=== PATIENT | male | born 1965 | race Caucasian/White ===

== ENCOUNTER 2019-05-11 00:37 | Inpatient (IN) ==
[2019-05-11] MEDS ORDERED: PULMICORT INH ONE (02:23)
[2019-05-11] MEDS ORDERED: SOLU-MEDROL IV ONE (02:23)
[2019-05-11] MEDS ORDERED: DUONEB (A & A) INH ONE (02:23)
--- NOTE | 2019-05-11 02:26 | PROVIDER DOCUMENTATION ---
HPI-General Adult - General Chief Complaint: General Adult Stated Complaint: CHEMICAL REACTION Time Seen by Provider: 05/11/19 03:00 Source: patient Allergies/Adverse Reactions: Patient Allergies Allergy/AdvReac Type Severity Reaction Status Date / Time Penicillins Allergy ANAPHYLAXIS Verified 03/14/18 00:54 Home Medications: Home Medication List Medication Instructions Recorded Confirmed Last Taken Type Insulin Glargine [Lantus] 50 units SUBQ DAILY 01/21/15 03/14/18 04/04/17 11:00 History Methocarbamol [Robaxin-750] 750 mg PO BID #60 tablet 03/14/18 Unknown Rx Naproxen 500 mg PO BID PRN PRN #60 tablet 03/14/18 Unknown Rx - History of Present Illness -Gen Adult Nature of Presenting Problems: Presents to the with complaints of chemical inhalation. He states that he mixed draino and borax together and the fumes came up in his face and he inhaled them. He states since then he has been nauseous and has been having some SOB. This happened around 6pm and he states that it was getting worse so his wofe made him come in. Review of Systems - Adult - REVIEW OF SYSTEMS - ADULT Constitutional: reports: no symptoms reported Eyes: reports: no symptoms reported. denies: decreased vision, blurred vision, double vision Ears, Nose, Mouth & Throat: reports: no symptoms reported Cardiovascular: denies: chest pain Respiratory: reports: see HPI, shortness of breath, wheezing Gastrointestinal: reports: see HPI, nausea. denies: vomiting Genitourinary: reports: no symptoms reported Musculoskeletal: reports: no symptoms reported Integumentary: reports: no symptoms reported Neurological: reports: no symptoms reported. denies: dizziness/vertigo Psychiatric: reports: no symptoms reported Endocrine: reports: no symptoms reported Hematologic/Lymphatic: reports: no symptoms reported Allergic/Immunologic: reports: no symptoms reported All Other Systems: Reviewed and Negative Past History - Adult - PAST MEDICAL HISTORY-ADULT Review of Records: reports: Old Records Reviewed, Nursing Assessment Review, Medications Reviewed Major Childhood Illnesses: reports: denies history Cardiovascular: reports: denies history Respiratory: reports: denies history Gastrointestinal: reports: denies history Obstetrical/Gynecological: reports: denies history Genitourinary: reports: denies history Musculoskeletal: reports: denies history Neurological: reports: denies history Endocrine/Immune: reports: denies history Other Conditions: reports: denies history - IMMUNIZATION STATUS Childhood Immunizations: See Nurse Assessment Flu Vaccine: See Nurse Assessment - FAMILY HISTORY Family History: reviewed, not pertinent Physical Exam-General - PHYSICAL EXAM-ADULT Initial Vital Signs Reviewed: Yes - CONSTITUTIONAL General Appearance: alert, mild distress (mildly tachypneic on venti mask) - EYES Eyes: PERRL/EOMI - HEAD, EARS, NOSE, MOUTH & THROAT HENMT: normocephalic/atraumatic, moist mucous membranes - NECK Neck: non-tender, full range of motion, supple - RESPIRATORY Respiratory: chest non-tender, respiratory distress (mild), accessory muscle use (mild), wheezing (moderate diffusely) - CARDIOVASCULAR Cardiovascular: normal peripheral pulses, regular rate, rhythm, no edema, no murmur - GASTROINTESTINAL (ABDOMEN) Abdominal Exam: normal bowel sounds, non tender, soft - MUSCULOSKELETAL Back Exam: normal inspection Extremity: normal gait, normal inspection - SKIN Integumentary: normal color, warm/dry - NEUROLOGIC Neurologic: grossly normal - PSYCHIATRIC Psych/Mental Status: normal mood/affect, oriented x 3 Progress - PLAN OF CARE/RESULTS Progress/Plan/Lab Results: Vital Signs - 8 hr 05/11/19 00:39 Temperature 97.5 F L Pulse Rate 59 L Respiratory Rate 18 Blood Pressure 137/100 O2 Sat by Pulse Oximetry 97 Nursing staff contacted poison control who advised to treat like asthma attack and monitor for 4-6 hours. Patient continued to be monitored but became more tired from work of breathing and airway became more stridorous. Decision to intubate with patient's permission was completed. Patient intubated and now on venitlator. Charisse garciaon control back who stated that he might benefit from EGD as well. Spoke to Dr Dean who was down examining other patients and he states that he might benefit from GI completing the procedure given taht they can do dual scope. We will wait for hospitalist to make the decision as to who they would like complete the scope. Spoke to Hospitalist who accepted patient for admission. Further orders to be placed by hospitalist team. Result Diagrams: 05/11/19 02:51 05/11/19 02:51 - XRAY 1 XRAY Study: Chest (interstitial edema) Procedures - INTUBATION Time of Intubation: 04:31 Mallampati Class: 2 Intubation Method: orotracheal Equipment: ETT Tube Size (cm): 8.0 Pretreated with 100% Oxygen?: Yes Breath Sounds after Intubation: equal ETT Primary Tube Confirmation: Capnometry CO2 Change, Direct Visualization, Chest Rise and Fall, Tube placement verified on XRAY Intubation Complications: no complications Departure - Departure Date of Disposition Decision: 05/11/19 Time of Disposition Decision: 06:40 DIAGNOSIS: Inhalation injury due to chemical, Respiratory distress, Stridulous breathing Disposition: ADMITTED INPATIENT 09 Certified Medical Emergency: Emergent Condition: Stable Referrals and Follow-Ups: Tana Courtney CRNP [Primary Care Provider] - - Critical Care Note This patient required my direct & personal management of CC.: Yes Total Time (mins): 110 Critical Care Statement: This patient required my direct personal management to treat or rule out processes, the absence of which, could potentiallly result in sudden, clinically significant life or limb threatening deterioration. Attestation - Physician/ GRACIELA Attestation Patient care was provided by Advanced Practice Provider:: No The physician spent face to face time with patient:: Yes Advanced Practice Provider documentation review:: Supervising physician onsite and consulted in the evaluation and care of this patient. The physician did have a face to face encounter with the patient.
[2019-05-11 02:58] LABS: ALLEN TEST YES; BE 2.4 mmoll (-3.0-3.0); BLOOD TYPE ARTERIAL; HCO3-(ACT) 26.8 mmoll (20.0-26.0); METHB 0.9 % (0.0-1.5); O2(CT) 21.6 mL/dL (15.0-23.0); O2HB 97.2 % (95.0-99.0); PCO2(98.6) 45 mmHg (35-45); PO2(98.6) 214 mmHg (60-100); SAMPLE BLOOD; SAO2 98.5 % (95.0-100.0); THB 15.5 g/dL (11.5-17.4)
[2019-05-11 02:59] LABS: MODALITY VENTIMASK
[2019-05-11 03:02] LABS: BASO# 0.04 X1000 (0.0-0.2); BASO% 0.6 % (0.0-0.8); EOS# 0.25 X1000 (0.0-0.7); EOS% 3.7 % (0.0-10.0); HEMATOCRIT 46.8 % (42.0-52.0); HEMOGLOBIN 15.8 g/dL (14.0-18.0); LYMPH# 2.04 X1000 (1.2-3.4); MCHC 33.8 g/dL (33-37); MCV 85.9 FL (81-99); MONO# 0.48 X1000 (0.11-0.59); MONO% 7.1 % (1.7-9.3); NEUT# 3.98 X1000 (1.4-6.5); NEUT% 58.6 % (42.2-75.2); PLT 274 X1000 (130-400); RBC 5.45 XMIL (4.7-6.1); RDW 13.2 % (11.5-14.5); WBC 6.79 X1000 (4.8-10.8)
[2019-05-11 03:31] LABS: AGAP 10; ALB/GLOB RATIO 1.7; ALBUMIN 4.8 g/dL (3.5-5.0); ALKALINE PHOSPHATASE 83 U/L (32-122); BUN 13 mg/dL (8-22); CALCIUM 9.7 mg/dL (8.8-10.2); CHLORIDE 101 mmol/L (98-107); COSMO 286; CREATININE 0.7 mg/dL (0.7-1.2); ESTIMATED GFR > 60; GLUCOSE 148 mg/dL (70-104); GOT 12 U/L (10-34); GPT 12 U/L (10-44); SODIUM 142 mmol/L (136-145); TCO2 31 mmol/L (25-35); TOTAL BILIRUBIN 0.53 mg/dL (0.20-1.00); TOTAL PROTEIN 7.6 g/dL (6.3-8.3)
[2019-05-11] MEDS ORDERED: VERSED ONE (04:23)
[2019-05-11] MEDS ORDERED: NORCURON ONE (04:23)
[2019-05-11] MEDS ORDERED: AMIDATE ONE (04:23)
[2019-05-11] MEDS ORDERED: QUELICIN ONE (04:24)
[2019-05-11] MEDS ORDERED: DIPRIVAN 1% 1,000 MG/100 ML BOTTLE ONE ×2 (04:44→05:23)
[2019-05-11] MEDS ORDERED: ZOFRAN ONE (04:54)
[2019-05-11] MEDS ORDERED: QUELICIN IV ONE (05:14)
[2019-05-11] MEDS ORDERED: AMIDATE IV ONE (05:16)
[2019-05-11] MEDS ORDERED: VERSED IV ONE ×2 (05:17→06:27)
[2019-05-11] MEDS ORDERED: ZOFRAN IV ONE (05:18)
[2019-05-11] MEDS ORDERED: NS 1,000 ML ONE (05:23)
[2019-05-11] MEDS ORDERED: STERILE WATER INJ. ONE (05:58)
[2019-05-11] MEDS ORDERED: NORCURON IV ONE (06:12)
--- NOTE | 2019-05-11 06:40 | Diag Imaging Result Doc PS360 ---
CHEST-2 VIEWS - 05/11/2019 INDICATION: inhaled boric acid and drano COMPARISON: 03/06/2018 FINDINGS: The lungs are normally expanded and clear. Heart size and mediastinal contours are normal. No pneumothorax or pleural effusion. IMPRESSION: Negative exam. Electronically signed by Librado Fisher 05/11/2019 6:38 AM
--- NOTE | 2019-05-11 06:41 | Diag Imaging Result Doc PS360 ---
CHEST-PORTABLE - 05/11/2019 4:58 AM INDICATION: ET Tube Placement COMPARISON: 2:35 AM FINDINGS: There is a new endotracheal tube in good position at T5. There is a nasogastric tube in good position in the stomach. Lung volumes are much lower. There is some patchy atelectasis in both lung bases. Heart size is normal. IMPRESSION: No complication from support tube placement. Lower lung volumes with bibasilar patchy atelectasis. Electronically signed by Librado Fisher 05/11/2019 6:39 AM
[2019-05-11] MEDS ORDERED: ATIVAN IV ONE (07:20)
[2019-05-11] MEDS ORDERED: ATIVAN ONE ×2 (07:25→08:46)
[2019-05-11] MEDS ORDERED: ZOFRAN IV PRN (08:44)
[2019-05-11] MEDS ORDERED: NS 1,000 ML IV ONE (08:44)
[2019-05-11] MEDS ORDERED: ATIVAN IV PRN (08:44)
[2019-05-11] MEDS ORDERED: DUONEB (A & A) INH PRN (08:44)
[2019-05-11 09:01] LABS: URINE SOURCE CATH
[2019-05-11 09:07] LABS: BILIRUBIN URINE NEGATIVE (NEGATIVE); BLOOD URINE NEGATIVE (NEGATIVE); COLOR YELLOW; GLUCOSE URINE >1000 mg/dL (NEGATIVE); KETONE URINE 40 mg/dL (NEGATIVE); LEUKOCYTES URINE NEGATIVE (NEGATIVE); NITRITE URINE NEGATIVE (NEGATIVE); PROTEIN URINE 30 mg/dL (NEGATIVE); SP GRAVITY URINE 1.028; TURBIDITY URINE CLEAR (CLEAR); UROBILINOGEN URINE NORMAL (NORMAL)
[2019-05-11 09:08] LABS: UR EPITHELIAL CELLS <10 /HPF (<10); URINE BACTERIA NEGATIVE /HPF; URINE RBC <10 /HPF (<10); URINE WBC <10 /HPF (<10)
[2019-05-11] MEDS: DIPRIVAN 1% 1,000 MG/100 ML BOTTLE IV SCH ×6 (09:11→21:03)
[2019-05-11] MEDS ORDERED: ZANTAC IV SCH (09:30)
[2019-05-11 09:56] LABS: ALLEN TEST YES; BE -0.2 mmoll (-3.0-3.0); BLOOD TYPE ARTERIAL; HCO3-(ACT) 24.8 mmoll (20.0-26.0); METHB 0.8 % (0.0-1.5); O2(CT) 19.8 mL/dL (15.0-23.0); O2HB 96.9 % (95.0-99.0); PCO2(98.6) 41 mmHg (35-45); PO2(98.6) 116 mmHg (60-100); SAMPLE BLOOD; SAO2 98.5 % (95.0-100.0); SRATE 14 BPM; THB 14.4 g/dL (11.5-17.4); TVOL 600 mL; pH(98.6) 7.39 (7.35-7.45)
[2019-05-11 09:57] LABS: MODALITY VENTILATOR
--- NOTE | 2019-05-11 10:23 | HISTORY AND PHYSICAL ---
PRIMARY CARE PROVIDER: JENS Kendrick. CHIEF COMPLAINT: Shortness of breath, nausea, and vomiting per . HISTORY OF PRESENT ILLNESS: Mr. Rangel is a 53-year-old male who carries a past medical history of diabetes mellitus type 2. Per the patient's , last night around 6 p.m. he was trying to unclog a tub. He first poured Drano down there, waited about an hour and poured boric acid on top of it. It made fumes. The patient inhaled them; shortly after he started experiencing some nausea and vomiting that progressed to some shortness of breath. His urged him to come to the ED where they watched him closely. They started to note some swelling to his tongue and throat. He started having some stridor. He was intubated, and will be admitted for toxic inhalation, and he will be watched closely in the ICU with a consult with Pulmonary and GI. REVIEW OF SYSTEMS: Twelve-point review of systems hard to obtain secondary to the patient being sedated with propofol and Ativan. PAST MEDICAL HISTORY: Diabetes mellitus type 2. PAST SURGICAL HISTORY: 1. Bilateral knee surgery. 2. Hernia repair. 3. Appendectomy. SOCIAL HISTORY: The patient is . He lives with his . Denies any alcohol, tobacco or illicit drug use. FAMILY HISTORY: Unknown. HOME MEDICATIONS: Insulin. ALLERGIES: Penicillin. PHYSICAL EXAMINATION: VITAL SIGNS: Temperature is 97.5 degrees, heart rate 83, respirations 18, blood pressure 134/78, O2 is 98% on mechanical ventilation. GENERAL: Mr. Rangel is a 53-year-old male, who was intubated, sedated on the ventilator. Bilateral wrist restraints in place. Lying on the stretcher in no acute distress. HEENT: Atraumatic, normocephalic. ANASTACIA. NECK: Supple. Trachea midline. Mucous membranes: I could not appreciate any chemical type russell. It was hard to assess secondary to the patient being intubated. There might have been some slight tongue swelling; again, hard to assess. CV: S1, S2 appreciated. No murmurs, gallops, rubs noted. RESPIRATORY: Lung sounds clear. No rales, rhonchi, or wheezes. GI: Abdomen soft, nontender, nondistended. Positive bowel sounds 4 quadrants. EXTREMITIES: Lower extremities were negative for edema. Bilateral pedal pulses were bounding. NEUROLOGIC: Patient is on the vent, sedated with propofol. He did become somewhat agitated prior to being transferred to the ICU, and restraints did have to be placed at that time. DIAGNOSTIC DATA: Initial chest x-ray: A negative exam. Followup chest x-ray after intubation showed no complication from supportive tube placement. Lower lung volumes with bibasilar patchy atelectasis. LABORATORY DATA: White count 6, hemoglobin and hematocrit 15 and 46, platelet count is 274. ABG: A pH 7.4, pCO2 45, PO2 214, bicarbonate 26, base excess 2.4, O2 saturation 98.5 on Ventimask. Sodium 142, potassium 4.0, BUN 13, creatinine 0.7, blood glucose was 148. Urinalysis was negative for nitrates, negative for bacteria. ASSESSMENT AND PLAN: 1. Toxic chemical inhalation. The patient has been mechanically intubated in the ED. We will consult Pulmonology as well as Gastroenterology. The ED did report the patient had tongue swelling, as well as some irritation to the throat, and was having some stridor. We will continue on bronchodilators. Dr. Thornton has added Solu-Medrol intravenous as well as Zantac intravenous. We will continue him on propofol drip, as well as Ativan as- needed for agitation. 2. Diabetes mellitus type 2. We will continue with pattern blood sugars and sliding scale insulin. 3. Further recommendation to follow physician evaluation, laboratory and diagnostic data. Dictated by JENS Cash for Navid Rocha MD cc: MD Tana Moreno CRNP James E. Boyle, MD Michael Kelso, MD MTDD
[2019-05-11] MEDS: ZANTAC 50 MG in NS 50 ML IV SCH ×2 (10:31→18:09)
[2019-05-11 10:34] LABS: UR AMPHETAMINES QUAL NONE DETECTED (NONE DETECT); UR BARBITUATES QUAL NONE DETECTED (NONE DETECT); UR BENZODIAZEPIN QUAL PRESUMPTIVE POSITIVE (NONE DETECT); UR CANNABINOIDS QUAL NONE DETECTED (NONE DETECT); UR COCAINE QUAL NONE DETECTED (NONE DETECT); UR METHADONE QUAL NONE DETECTED (NONE DETECT); UR OPIATES QUAL NONE DETECTED (NONE DETECT); UR OXYCODONE QUAL NONE DETECTED (NONE DETECT); UR PCP QUAL NONE DETECTED (NONE DETECT)
[2019-05-11] MEDS: LOVENOX SUBQ SCH (10:34)
[2019-05-11] MEDS: SOLU-MEDROL IV SCH ×2 (10:34→16:47)
[2019-05-11] MEDS: HUMALOG SUBQ SCH ×4 (10:42→20:44)
[2019-05-11] MEDS ORDERED: HUMALOG SUBQ SCH (11:00)
[2019-05-11] MEDS: DUONEB (A & A) INH SCH ×4 (11:26→22:53)
--- NOTE | 2019-05-11 16:50 | PULMONOLOGY CONSULTATION ---
DATE: 05/11/2019 REASON FOR CONSULTATION: Respiratory failure. HISTORY OF PRESENT ILLNESS: Mr. Rangel is a 53-year-old white male, never smoker, who was in his usual state of good health until he mixed a combination of Drano and boric acid to unclog a sink. The patient's reports that with the mixture, the drain began to bubble, and he was exposed to the fumes. He subsequently became nauseous and vomited. The patient presented to the emergency room and had stridorous respirations with increased work of breathing. The patient was intubated approximately 7-1/2 hours after exposure. The patient is currently on mechanical ventilation and appears comfortable on propofol. He is receiving IV fluids. PAST MEDICAL HISTORY: 1. History of morbid obesity status post gastric sleeve placement. He has lost approximately 100 pounds since his sleeve placement. 2. Status post appendectomy. 3. Status post hernia repair. 4. Status post 2 knee surgeries. 5. Diabetes mellitus. ALLERGIES: Allergy to penicillin, which causes dyspnea and throat swelling. FAMILY HISTORY: Positive for diabetes mellitus, coronary artery disease, strokes, and seizures. SOCIAL HISTORY: The patient is a nonsmoker. Occasional social alcohol use. 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 REVIEW OF SYSTEMS: Cannot be obtained. PHYSICAL EXAMINATION: Physical exam reveals a healthy-appearing white male, who is intubated and sedated on mechanical ventilation.HEENT: Pupils are equal and reactive. He has no evidence of erythema or chemical conjunctivitis. Nasal passages appear clear without erythema, bleeding, drainage, or exudates. Oropharynx appears clear with limited evaluation with endotracheal tube in place. Neck is supple. Chest reveals good air entry bilaterally without wheezing or rhonchi. Cardiac: S1, S2. Regular rate. Abdomen is soft. Extremities are without edema. DIAGNOSTIC STUDIES: Chest x-ray reveals good endotracheal tube position with patchy atelectasis in the lung bases. Arterial blood gas reveals a pH of 7.39, pCO2 of 41, PO2 of 116 on mechanical ventilation. Sodium 142, potassium 4.0, chloride 101, bicarbonate 31, BUN 13, creatinine 0.7. White blood count 6.79, hemoglobin 15.8, platelet count 274,000. IMPRESSION: A 53-year-old with toxic chemical inhalation with acute hypoxemic respiratory failure requiring intubation and mechanical ventilation. Typically mixing an acid and a base will produce heat, but the fumes can be acidic or basic, depending on the stoichiometry of the mixture, and chemical airways burn can occur. RECOMMENDATIONS: 1. Initiate steroids, although this may or may not be of benefit. 2. Continue ventilatory care. 3. Tomorrow, his cuff will be deflated to see if he has good air flow around the cuff. 4. GI evaluation being considered as outlined by recommendations from Poison Control. 5. Routine bronchodilators. 6. Routine gastric acid suppression. 7. Sedation and DVT prophylaxis as necessary. cc: Josh Thornton MD
--- NOTE | 2019-05-11 17:29 | HISTORY AND PHYSICAL ---
ADDENDUM: The patient seen and examined by me [id number]. All of the laboratory, vital signs, and images were reviewed. It looks like this patient has a toxic chemical inhalation with acute hypoxemic respiratory failure requiring intubation and mechanical ventilation. As per the , he was using Drano and then boric acid on top of that and that made fumes. He was trying to unclog a tub. As per the , he started having some shortness of breath afterwards, that was yesterday around 6 p.m., and then he was progressively getting worse, to the point that he was not breathing normally so she decided to come to the emergency department and he was intubated. Laboratory does not look that bad. Urine toxicology showed benzodiazepine. Chemistry showed hyperglycemia. Pulmonary Department has been consulted. We will follow their recommendations. Physical exam showed some crepitus at the bases but good air entry. We will continue monitoring this patient in the ICU. He will receive some steroids, GI and DVT prophylaxis. cc: Navdi Rocha MD
[2019-05-12] MEDS: DIPRIVAN 1% 1,000 MG/100 ML BOTTLE IV SCH ×4 (00:03→07:41)
[2019-05-12] MEDS: HUMALOG SUBQ SCH ×6 (00:44→21:08)
[2019-05-12] MEDS: SOLU-MEDROL IV SCH ×3 (00:44→16:29)
[2019-05-12] MEDS: ZANTAC 50 MG in NS 50 ML IV SCH ×3 (02:06→17:59)
[2019-05-12] MEDS: DUONEB (A & A) INH SCH ×6 (03:02→23:10)
--- NOTE | 2019-05-12 06:34 | Diag Imaging Result Doc PS360 ---
CHEST-PORTABLE - 05/12/2019 INDICATION: dyspnea COMPARISON: 05/11/2019 FINDINGS: Support tubes are stable and in good position. Stable severely low lung volumes. Stable hazy atelectasis in both lung bases. No new infiltrates. Heart size remains top normal. IMPRESSION: No change from prior. Electronically signed by Librado Fisher 05/12/2019 6:31 AM
[2019-05-12 07:52] LABS: ALLEN TEST YES; BE -0.1 mmoll (-3.0-3.0); BLOOD TYPE ARTERIAL; HCO3-(ACT) 24.8 mmoll (20.0-26.0); METHB 0.8 % (0.0-1.5); O2(CT) 19.1 mL/dL (15.0-23.0); O2HB 97.2 % (95.0-99.0); PCO2(98.6) 36 mmHg (35-45); PO2(98.6) 147 mmHg (60-100); SAMPLE BLOOD; SAO2 98.5 % (95.0-100.0); SRATE 14 BPM; THB 13.8 g/dL (11.5-17.4); TVOL 600 mL; pH(98.6) 7.43 (7.35-7.45)
--- NOTE | 2019-05-12 07:56 | PROGRESS NOTE ---
DATE: 05/12/2019 SUBJECTIVE: Patient is still on mechanical ventilation and sedated. No acute events overnight. Vital signs are stable. We will continue with the same management for now. We will try to deflate the endotracheal cuff to see if there is good air flow around the cuff to see if we can extubate this patient anytime soon. OBJECTIVE: Vital Signs: Temperature 98.1 degrees, pulse 61, respiratory rate 14, blood pressure 97/60, oxygen saturation 99 on mechanical ventilation. HEENT: Head normocephalic. No trauma. PERRLA. Neck: Supple. No JVD. No masses. Central trachea. Chest: Clear to auscultation. Some scattered crepitus. Abdomen: Soft, nontender, nondistended. No hepatosplenomegaly. Extremities: No edema, no clubbing, no cyanosis. Neurologic: The patient is on mechanical ventilation and sedated. LABORATORY DATA: Pending lab work at this moment. ASSESSMENT AND PLAN: 1. Toxic chemical inhalation. Continue with mechanical ventilation. We will try to deflate the endotracheal cuff today to see if there is good air flow around the cuff. We will continue with mechanical ventilation in the meantime. We will monitor this patient closely. Pulmonary Department on board. 2. Type 2 diabetes. Continue pattern blood sugar and sliding scale insulin. Blood sugar seems to be stable. 3. Gastrointestinal prophylaxis with ranitidine. 4. Deep venous thrombosis prophylaxis with Lovenox. CRITICAL CARE TIME: 30 minutes. cc: Navid Rocha MD
[2019-05-12 08:14] LABS: MODALITY VENTILATOR
[2019-05-12] MEDS: LOVENOX SUBQ SCH (08:31)
[2019-05-12] MEDS: PRECEDEX 200 MICROGM in NS 48 ML IV SCH ×8 (09:42→23:45)
[2019-05-12 09:55] LABS: HEMATOCRIT 40.5 % (42.0-52.0); HEMOGLOBIN 13.9 g/dL (14.0-18.0); IMM GRAN# 0.02 X1000 (0.0-0.04); IMM GRAN% 0.2 % (0.0-0.5); LYMPH# 0.51 X1000 (1.2-3.4); LYMPH% 4.8 % (20.5-51.1); MCH 29.3 PG (27-31); MCHC 34.3 g/dL (33-37); MCV 85.3 FL (81-99); MONO# 0.51 X1000 (0.11-0.59); MONO% 4.8 % (1.7-9.3); MPV 10.8 FL (7.4-10.4); NEUT# 9.49 X1000 (1.4-6.5); NEUT% 90.2 % (42.2-75.2); PLT 261 X1000 (130-400); RBC 4.75 XMIL (4.7-6.1); RDW 13.5 % (11.5-14.5); WBC 10.53 X1000 (4.8-10.8)
[2019-05-12] MEDS: ATIVAN IV PRN ×2 (10:06→15:06)
[2019-05-12 10:09] LABS: HEMOGLOBIN A1C 7.7 % (4.8-6.0)
[2019-05-12 11:08] LABS: AGAP 15; BUN 13 mg/dL (8-22); CALCIUM 8.6 mg/dL (8.8-10.2); CHLORIDE 106 mmol/L (98-107); COSMO 287; CREATININE 0.6 mg/dL (0.7-1.2); GLUCOSE 192 mg/dL (70-104); SODIUM 141 mmol/L (136-145); TCO2 20 mmol/L (25-35)
[2019-05-12 11:09] LABS: ALB/GLOB RATIO 1.3; ALBUMIN 3.6 g/dL (3.5-5.0); ALKALINE PHOSPHATASE 63 U/L (32-122); GOT 10 U/L (10-34); GPT 6 U/L (10-44); TOTAL BILIRUBIN 0.21 mg/dL (0.20-1.00); TOTAL PROTEIN 6.3 g/dL (6.3-8.3)
--- NOTE | 2019-05-12 20:45 | PULMONOLOGY PROGRESS NOTE ---
DATE: 05/12/2019 SUBJECTIVE: The patient's propofol was held. The patient became very combative and despite holding his arms and allowing time to pass, he would not open his eyes and follow commands. His endotracheal tube cuff was deflated and he does have some air with exhalation, but it is difficult to tell if he has air with inhalation past the deflated cuff. OBJECTIVE: Vital Signs: Blood pressure 157/98, heart rate 67, respiratory rate 14, oxygen saturation 98%. HEENT: Pupils are equal and reactive. Oropharynx is clear. Neck: Supple. Chest: Coarse rhonchi bilaterally. Cardiac: S1, S2. Abdomen: Soft and without hepatosplenomegaly. Extremities: Without edema. LABORATORIES: Chest x-ray reveals shallow inspiration with hazy atelectasis in both lung bases. Arterial blood gas reveals pH 7.43, pCO2 of 36, pO2 of 147. Sodium 141, potassium 4.0, chloride 106, bicarbonate 20, anion gap 20, BUN 13, creatinine 0.6, glucose 192. White blood count 10.53, hemoglobin 13.9, platelet count 261,000. IMPRESSION: A 53-year-old with: 1. Acute hypoxemic respiratory failure. 2. Toxic chemical inhalation after mixing boric acid and Drano. 3. Altered mental status. RECOMMENDATION: 1. Will transition patient to Precedex due to the fact that propofol could not be held long enough to examine inspiratory and expiratory flow around a deflated cuff. 2. Ativan as needed for anxiety. 3. Continue steroids. 4. Continue gastric acid suppression. 5. Check a sputum for culture and sensitivity. 6. Anticipate extubation later this afternoon or tomorrow morning. Critical Care Time: 30+ minutes cc: Josh Thornton MD MTDD
[2019-05-13] MEDS: HUMALOG SUBQ SCH ×6 (01:16→20:34)
[2019-05-13] MEDS: SOLU-MEDROL IV SCH ×3 (01:16→16:49)
[2019-05-13] MEDS: PRECEDEX 200 MICROGM in NS 48 ML IV SCH ×2 (02:40→06:33)
[2019-05-13] MEDS: DUONEB (A & A) INH SCH ×6 (03:15→23:10)
[2019-05-13] MEDS: ZANTAC 50 MG in NS 50 ML IV SCH ×3 (03:28→19:05)
[2019-05-13 04:36] LABS: ALLEN TEST YES; BE 0.5 mmoll (-3.0-3.0); BLOOD TYPE ARTERIAL; HCO3-(ACT) 25.3 mmoll (20.0-26.0); O2(CT) 21.4 mL/dL (15.0-23.0); O2HB 95.9 % (95.0-99.0); PCO2(98.6) 41 mmHg (35-45); PO2(98.6) 98 mmHg (60-100); SAMPLE BLOOD; SAO2 97.7 % (95.0-100.0); SRATE 14 BPM; THB 15.8 g/dL (11.5-17.4); TVOL 600 mL
[2019-05-13 04:43] LABS: MODALITY VENTILATOR
[2019-05-13 05:05] LABS: BASO# 0.01 X1000 (0.0-0.2); BASO% 0.1 % (0.0-0.8); HEMATOCRIT 44.5 % (42.0-52.0); HEMOGLOBIN 15.2 g/dL (14.0-18.0); LYMPH# 0.57 X1000 (1.2-3.4); LYMPH% 4.8 % (20.5-51.1); MCH 29.3 PG (27-31); MCHC 34.2 g/dL (33-37); MCV 85.9 FL (81-99); MONO# 0.67 X1000 (0.11-0.59); MONO% 5.7 % (1.7-9.3); MPV 10.4 FL (7.4-10.4); NEUT% 89.4 % (42.2-75.2); PLT 242 X1000 (130-400); RBC 5.18 XMIL (4.7-6.1); RDW 13.3 % (11.5-14.5); WBC 11.85 X1000 (4.8-10.8)
[2019-05-13 05:11] LABS: AGAP 14; ALB/GLOB RATIO 1.3; ALBUMIN 3.7 g/dL (3.5-5.0); ALKALINE PHOSPHATASE 65 U/L (32-122); BUN 19 mg/dL (8-22); CALCIUM 9.1 mg/dL (8.8-10.2); CHLORIDE 105 mmol/L (98-107); COSMO 291; CREATININE 0.7 mg/dL (0.7-1.2); ESTIMATED GFR > 60; GLUCOSE 233 mg/dL (70-104); GOT 9 U/L (10-34); GPT 8 U/L (10-44); POTASSIUM 4.3 mmol/L (3.5-5.1); SODIUM 141 mmol/L (136-145); TCO2 22 mmol/L (25-35); TOTAL BILIRUBIN 0.56 mg/dL (0.20-1.00); TOTAL PROTEIN 6.5 g/dL (6.3-8.3)
--- NOTE | 2019-05-13 07:52 | Diag Imaging Result Doc PS360 ---
EXAM: CHEST-PORTABLE INDICATION: dyspnea TECHNIQUE: One view COMPARISON: 05/12/2019 FINDINGS: Support tubes and lines are in stable positions. Atelectasis and/or infiltrate at the right mid and lower lung zone appears to have slightly worsened. The milder atelectasis at the left lower lung zone is stable. No new consolidation is identified, otherwise. Cardiac silhouette is stable. IMPRESSION: Interval slight worsening of atelectasis and/or infiltrate on the right. Electronically signed by Carlos Sue 05/13/2019 7:49 AM
--- NOTE | 2019-05-13 08:04 | PROGRESS NOTE ---
DATE: 05/13/2019 SUBJECTIVE: This patient is still on mechanical ventilation and sedated. We will continue with the same management for now. Hopefully, we will extubate this patient today. Pulmonary Department on board. OBJECTIVE: Vital Signs: Temperature 97.4 degrees, pulse 58, respiratory rate 14, blood pressure 140/82, oxygen saturation 98 on mechanical ventilation. HEENT: Head normocephalic, no trauma. PERRLA. Neck: Supple. No JVD. No masses. Central trachea. Chest: Clear to auscultation. Some scattered crepitus at the bases. Abdomen: Soft, nontender, nondistended. No hepatosplenomegaly. Extremities: No edema, no clubbing, no cyanosis. Neurological examination: The patient is on mechanical ventilation and sedated. LABORATORY: WBC 11.8, hemoglobin 15.2, hematocrit 44.5, and platelets 242. Sodium 141, potassium 4.3, chloride 105, bicarbonate 22. BUN 19, creatinine 0.7 glucose 233, calcium 9.1. ASSESSMENT AND PLAN: 1. Toxic chemical inhalation. Continue with mechanical ventilation. We will try to extubate this patient today. Pulmonary Department on board. Continue with same management. 2. Type 2 diabetes. Continue with pattern blood sugar and sliding scale insulin. We will put this patient back on his Lantus once he is extubated and able to eat. 3. Gastrointestinal prophylaxis with ranitidine. 4. Deep vein thrombosis prophylaxis with Lovenox. 5. Hemoglobin A1c 7.7. CRITICAL CARE TIME: 35 minutes. cc: Navid Rocha MD
[2019-05-13] MEDS: LOVENOX SUBQ SCH (08:14)
--- NOTE | 2019-05-13 10:06 | PULMONOLOGY PROGRESS NOTE ---
DATE: 05/13/2019 SUBJECTIVE: The patient is awake. He will follow commands. OBJECTIVE: Vital Signs: The patient has been afebrile for the last 24 hours. Blood pressure 112/70, heart rate 62, respiratory rate 12 on the monitor, oxygen saturation 98%. HEENT pupils are equal and reactive. Oropharynx evaluation appears normal but evaluation is limited with endotracheal tube in place. Neck is supple. Chest reveals scattered rhonchi bilaterally. Cardiac exam: S1, S2. Abdomen is soft without hepatosplenomegaly. Extremities without edema. LABORATORIES: Chest x-ray reveals increased infiltrates on the right. Sputum culture is pending. White blood count 11.9, hemoglobin 15.2, platelet count 242,000. Sodium 141, potassium 4.3, chloride 105, bicarbonate 22, BUN 19, creatinine 0.7. Arterial blood gas reveals a pH of 7.40, pCO2 of 41, pO2 of 98. ADDITIONAL EVENTS: The patient has endotracheal tube cuff was deflated. He did have air around the cuff. He had copious amounts of secretions which were suctioned clear. He was doing well on a spontaneous breathing trial. The [place] scope was brought to the bedside by respiratory therapy. The patient was extubated by respiratory therapy. On re-evaluation, he has no increased work of breathing off mechanical ventilation. His voice is coarse. IMPRESSION: 1. 53-year-old with toxic chemical inhalation with upper airway injury. 2. Acute hypoxemic respiratory failure. 3. Right sided pneumonia. 4. Patient doing well following extubation. RECOMMENDATIONS: 1. Continue bronchodilators. 2. Continue steroids. 3. Low threshold for initiating antibiotics given mild elevation in white count and radiographic changes. 4. Continue ICU monitoring. TIME SPENT CRITICAL CARE: 30 plus minutes. cc: Josh Thornton MD
[2019-05-13] MEDS: MORPHINE IV PRN ×4 (13:01→23:12)
[2019-05-13] MEDS: CLINIMIX E 4.25%-5% SOLUTION 1,000 ML IV SCH (13:35)
[2019-05-13] MEDS ORDERED: CHLORASEPTIC SPRAY MT PRN (21:36)
[2019-05-14] MEDS ORDERED: FLEXERIL PO ONE (00:16)
[2019-05-14] MEDS: HUMALOG SUBQ SCH ×6 (02:23→20:34)
[2019-05-14] MEDS: SOLU-MEDROL IV SCH ×3 (02:25→18:19)
[2019-05-14] MEDS: CLINIMIX E 4.25%-5% SOLUTION 1,000 ML IV SCH (02:51)
[2019-05-14] MEDS: DUONEB (A & A) INH SCH ×6 (03:03→23:33)
[2019-05-14] MEDS: ZANTAC 50 MG in NS 50 ML IV SCH ×3 (03:32→18:19)
[2019-05-14 05:01] LABS: BASO# 0.01 X1000 (0.0-0.2); BASO% 0.1 % (0.0-0.8); EOS# 0.01 X1000 (0.0-0.7); EOS% 0.1 % (0.0-10.0); HEMATOCRIT 42.9 % (42.0-52.0); HEMOGLOBIN 14.4 g/dL (14.0-18.0); LYMPH# 0.89 X1000 (1.2-3.4); LYMPH% 8.6 % (20.5-51.1); MCH 29.2 PG (27-31); MCHC 33.6 g/dL (33-37); MONO# 0.83 X1000 (0.11-0.59); MPV 10.3 FL (7.4-10.4); NEUT# 8.63 X1000 (1.4-6.5); NEUT% 83.2 % (42.2-75.2); PLT 234 X1000 (130-400); RBC 4.93 XMIL (4.7-6.1); RDW 13.4 % (11.5-14.5); WBC 10.37 X1000 (4.8-10.8)
[2019-05-14 05:03] LABS: ALLEN TEST YES; BE 4.5 mmoll (-3.0-3.0); BLOOD TYPE ARTERIAL; HCO3-(ACT) 28.5 mmoll (20.0-26.0); PCO2(98.6) 46 mmHg (35-45); PO2(98.6) 129 mmHg (60-100); SAMPLE BLOOD; pH(98.6) 7.42 (7.35-7.45)
[2019-05-14 05:04] LABS: MODALITY COOL AEROSOL
[2019-05-14 05:18] LABS: AGAP 11; ALB/GLOB RATIO 1.2; ALBUMIN 3.4 g/dL (3.5-5.0); ALKALINE PHOSPHATASE 58 U/L (32-122); BUN 20 mg/dL (8-22); CALCIUM 9.6 mg/dL (8.8-10.2); CHLORIDE 104 mmol/L (98-107); COSMO 288; CREATININE 0.5 mg/dL (0.7-1.2); ESTIMATED GFR > 60; GLUCOSE 174 mg/dL (70-104); POTASSIUM 4.3 mmol/L (3.5-5.1); SODIUM 141 mmol/L (136-145); TCO2 26 mmol/L (25-35); TOTAL BILIRUBIN 0.39 mg/dL (0.20-1.00); TOTAL PROTEIN 6.2 g/dL (6.3-8.3)
[2019-05-14 05:19] LABS: GOT 12 U/L (10-34); GPT 8 U/L (10-44)
[2019-05-14] MEDS: MORPHINE IV PRN ×5 (05:29→20:35)
--- NOTE | 2019-05-14 07:08 | Diag Imaging Result Doc PS360 ---
EXAM: CHEST-PORTABLE 05/14/2019 HISTORY: dyspnea TECHNIQUE: AP portable at 0528 COMMENT: There are platelike atelectatic changes over the left base with volume loss. There is some improvement in the opacity over the right lower lobe compared to 05/13/2019. The endotracheal tube and NG tube have been removed. IMPRESSION: Improved pneumonia right lower lobe. Worsened left lower lobe atelectasis. Electronically signed by Austin Suarez 05/14/2019 7:05 AM
[2019-05-14] MEDS: FLEXERIL PO PRN (07:28)
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
[2019-05-14] MEDS: LOVENOX SUBQ SCH (08:58)
[2019-05-14] MEDS ORDERED: FLEXERIL PO SCH (09:00)
[2019-05-14] MEDS: LEVAQUIN 500 MG/D5W 500 MG/100 ML IVPB IV SCH (12:13)
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
[2019-05-15] MEDS: HUMALOG SUBQ SCH ×6 (02:06→22:33)
[2019-05-15] MEDS: ZANTAC 50 MG in NS 50 ML IV SCH ×2 (02:07→12:28)
[2019-05-15] MEDS: SOLU-MEDROL IV SCH ×2 (02:07→09:59)
[2019-05-15] MEDS: DUONEB (A & A) INH SCH ×6 (03:33→23:05)
[2019-05-15 06:23] LABS: BASO# 0.02 X1000 (0.0-0.2); BASO% 0.2 % (0.0-0.8); EOS# 0.04 X1000 (0.0-0.7); EOS% 0.5 % (0.0-10.0); HEMATOCRIT 43.4 % (42.0-52.0); HEMOGLOBIN 14.7 g/dL (14.0-18.0); LYMPH# 0.63 X1000 (1.2-3.4); LYMPH% 7.3 % (20.5-51.1); MCH 29.3 PG (27-31); MCHC 33.9 g/dL (33-37); MCV 86.6 FL (81-99); MONO# 0.43 X1000 (0.11-0.59); MPV 10.4 FL (7.4-10.4); NEUT# 7.52 X1000 (1.4-6.5); PLT 254 X1000 (130-400); RBC 5.01 XMIL (4.7-6.1); WBC 8.64 X1000 (4.8-10.8)
[2019-05-15 06:47] LABS: AGAP 10; CHLORIDE 103 mmol/L (98-107); GLUCOSE 199 mg/dL (70-104); POTASSIUM 4.7 mmol/L (3.5-5.1); SODIUM 141 mmol/L (136-145); TCO2 28 mmol/L (25-35)
[2019-05-15 06:48] LABS: ALB/GLOB RATIO 1.3; ALBUMIN 3.4 g/dL (3.5-5.0); ALKALINE PHOSPHATASE 55 U/L (32-122); BUN 19 mg/dL (8-22); CALCIUM 8.3 mg/dL (8.8-10.2); COSMO 289; CREATININE 0.5 mg/dL (0.7-1.2); ESTIMATED GFR > 60; GOT 10 U/L (10-34); GPT 11 U/L (10-44); TOTAL BILIRUBIN 0.45 mg/dL (0.20-1.00); TOTAL PROTEIN 6.1 g/dL (6.3-8.3)
--- NOTE | 2019-05-15 07:19 | Diag Imaging Result Doc PS360 ---
EXAM: CHEST-PORTABLE 05/15/2019 HISTORY: dyspnea TECHNIQUE: AP portable at 0523 COMMENT: There is platelike atelectasis in both lung bases. This is improved somewhat on the left since 05/14/2019 but is worse on the right. IMPRESSION: Waxing and waning basilar atelectasis as described. Electronically signed by Austin Suarez 05/15/2019 7:17 AM
[2019-05-15] MEDS: FLEXERIL PO PRN (08:50)
[2019-05-15] MEDS: MORPHINE IV PRN (08:50)
[2019-05-15] MEDS: LOVENOX SUBQ SCH (08:54)
[2019-05-15] MEDS ORDERED: LANTUS INSULIN SUBQ SCH (09:00)
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
[2019-05-15] MEDS: LEVAQUIN 500 MG/D5W 500 MG/100 ML IVPB IV SCH (12:32)
[2019-05-15] MEDS: PREDNISONE PO SCH (14:22)
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
[2019-05-16] MEDS: HUMALOG SUBQ SCH ×2 (02:12→05:47)
[2019-05-16] MEDS: DUONEB (A & A) INH SCH ×2 (03:18→07:27)
[2019-05-16 06:33] LABS: BASO# 0.01 X1000 (0.0-0.2); BASO% 0.1 % (0.0-0.8); EOS# 0.17 X1000 (0.0-0.7); EOS% 1.9 % (0.0-10.0); HEMATOCRIT 42.9 % (42.0-52.0); HEMOGLOBIN 14.6 g/dL (14.0-18.0); IMM GRAN# 0.02 X1000 (0.0-0.04); IMM GRAN% 0.2 % (0.0-0.5); LYMPH# 1.74 X1000 (1.2-3.4); LYMPH% 19.6 % (20.5-51.1); MCH 29.1 PG (27-31); MCV 85.6 FL (81-99); MONO# 0.86 X1000 (0.11-0.59); MONO% 9.7 % (1.7-9.3); MPV 10.1 FL (7.4-10.4); NEUT% 68.5 % (42.2-75.2); PLT 287 X1000 (130-400); RBC 5.01 XMIL (4.7-6.1); RDW 12.9 % (11.5-14.5)
[2019-05-16 07:05] LABS: AGAP 4; ALB/GLOB RATIO 1.4; ALBUMIN 3.3 g/dL (3.5-5.0); ALKALINE PHOSPHATASE 67 U/L (32-122); BUN 16 mg/dL (8-22); CALCIUM 8.4 mg/dL (8.8-10.2); CHLORIDE 100 mmol/L (98-107); COSMO 286; CREATININE 0.6 mg/dL (0.7-1.2); ESTIMATED GFR > 60; GLUCOSE 230 mg/dL (70-104); GOT 9 U/L (10-34); GPT 11 U/L (10-44); POTASSIUM 3.6 mmol/L (3.5-5.1); SODIUM 139 mmol/L (136-145); TCO2 35 mmol/L (25-35); TOTAL BILIRUBIN 0.27 mg/dL (0.20-1.00); TOTAL PROTEIN 5.6 g/dL (6.3-8.3)
[2019-05-16 08:06] VITALS: BP 119/79
[2019-05-16] MEDS: PREDNISONE PO SCH (08:42)
[2019-05-16] MEDS: LOVENOX SUBQ SCH (08:42)
[2019-05-16] MEDS ORDERED: LEVAQUIN PO SCH (09:00)
--- NOTE | 2019-05-16 09:06 | Diag Imaging Result Doc PS360 ---
CHEST-2 VIEWS - 05/16/2019 INDICATION: abnormal exam COMPARISON: 05/15/2019 FINDINGS: Lung volumes are improved. There has been essentially complete clearance of the right lung base. There is some persistent linear atelectasis in the left lung base. Heart size is normal. No pneumothorax or pleural effusion. IMPRESSION: Significant improvement from prior. Electronically signed by Librado Fisher 05/16/2019 9:03 AM
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
== END 2019-05-16 10:27 | disposition home or self-care (01) | DRG 917 ==
LOC: ED 00:37 → ICU 00:38 → 4N 05-15 17:02
PROVIDERS: ATTEND Internal Medicine
CPT/HCPCS: 31500; 71010; 71020; 71045; 71046; 80053; 80101; 80301; 80307; 80324; 80345; 80346; 80353; 80358; 80361; 80365; 81001; 82805; 82948; 83036; 83992; 85025; 87070; 87077; 87184; 87205; 94003; 94640; 94760; 94761; 94762; 96374; 96375; 96376; 99285; 99291; A9270; G0431; G0434; G0479; G0480; J0330; J1650; J1815; J1956; J2060; J2250; J2270; J2405; J2780; J2920; J2930; J7030; J7506; J7512; XXXXX